=== PATIENT | male | born 1960 | race Caucasian/White ===

== ENCOUNTER 2023-02-15 11:54 | Day surgery (SDC) | payer OTHER ==
[~2023-02-15] VITALS: Ht 182.9 cm; Wt 108.9 kg
[2023-02-15] MEDS ORDERED: LISI5 PO (13:07)
[2023-02-15] MEDS ORDERED: METFORMIN HCL500 M3 PO (13:07)
[2023-02-15] MEDS ORDERED: KLONOPIN0.5 M9 PO (13:07)
--- NOTE | 2023-02-15 14:10 | NUR ---
02/15/23 1410 Eliana Estrada GANGRENE OF RIGHT BIG TOE NOTED DURING STERILE PREP.
[2023-02-15 14:30] VITALS: BP 105/74
== END 2023-02-15 15:30 | disposition home or self-care (01) ==
LOC: ORSCSDS 11:54
PROVIDERS: Podiatrist Foot & Ankle Surgery
PROC: 0Y6P0Z1 Detachment at Right 1st Toe, High, Open Approach (ICD-10-PCS; principal; 2023-02-15 14:00)
DX: M86.171 Other acute osteomyelitis, right ankle and foot (principal); I96 Gangrene, not elsewhere classified; L97.519 Non-pressure chronic ulcer of other part of right foot with unspecified severity; E11.42 Type 2 diabetes mellitus with diabetic polyneuropathy; I10 Essential (primary) hypertension; I77.9 Disorder of arteries and arterioles, unspecified; E66.9 Obesity, unspecified; Z68.32 Body mass index [BMI] 32.0-32.9, adult; Z87.891 Personal history of nicotine dependence; Z79.82 Long term (current) use of aspirin; Z79.84 Long term (current) use of oral hypoglycemic drugs; Z79.899 Other long term (current) drug therapy
CPT/HCPCS: 82947; 88305; 88311; J0690; J2001; J2250; J2704; J2795; J3010; J7120

== ENCOUNTER 2023-05-06 11:24 | Day surgery (SDC) | payer OTHER ==
[~2023-05-06 11:24] MED LIST: KLONOPIN0.5 M9 PO; LISI5 PO; METFORMIN HCL500 M3 PO
== END 2023-05-06 22:42 | disposition home or self-care (01) ==
LOC: WOUND 11:24
DX: I96 Gangrene, not elsewhere classified (principal); I10 Essential (primary) hypertension; E11.40 Type 2 diabetes mellitus with diabetic neuropathy, unspecified; Z87.891 Personal history of nicotine dependence
CPT/HCPCS: G0463

== ENCOUNTER 2023-05-13 03:45 | Day surgery (SDC) | payer OTHER | END 2023-05-13 23:11 | disposition home or self-care (01) | LOC: WOUND 03:45 | DX: E11.621 Type 2 diabetes mellitus with foot ulcer (principal); L97.529 Non-pressure chronic ulcer of other part of left foot with unspecified severity; E11.52 Type 2 diabetes mellitus with diabetic peripheral angiopathy with gangrene; I96 Gangrene, not elsewhere classified; E11.51 Type 2 diabetes mellitus with diabetic peripheral angiopathy without gangrene; E11.40 Type 2 diabetes mellitus with diabetic neuropathy, unspecified; I10 Essential (primary) hypertension | CPT/HCPCS: G0463 ==

== ENCOUNTER 2023-05-22 02:51 | Day surgery (SDC) | payer OTHER | END 2023-05-22 23:04 | disposition home or self-care (01) | LOC: WOUND 02:51 | DX: I96 Gangrene, not elsewhere classified (principal); E11.51 Type 2 diabetes mellitus with diabetic peripheral angiopathy without gangrene; I10 Essential (primary) hypertension; E11.40 Type 2 diabetes mellitus with diabetic neuropathy, unspecified | CPT/HCPCS: G0463 ==

== ENCOUNTER 2023-05-29 02:55 | Day surgery (SDC) | payer OTHER | END 2023-05-29 23:21 | disposition home or self-care (01) | LOC: WOUND 02:55 | DX: I96 Gangrene, not elsewhere classified (principal); E11.40 Type 2 diabetes mellitus with diabetic neuropathy, unspecified; I10 Essential (primary) hypertension | CPT/HCPCS: A9270; G0463 ==

== ENCOUNTER 2023-06-05 01:52 | Day surgery (SDC) | payer OTHER | END 2023-06-05 23:31 | disposition home or self-care (01) | LOC: WOUND 01:52 | DX: I96 Gangrene, not elsewhere classified (principal); E11.40 Type 2 diabetes mellitus with diabetic neuropathy, unspecified; E11.621 Type 2 diabetes mellitus with foot ulcer; E11.51 Type 2 diabetes mellitus with diabetic peripheral angiopathy without gangrene; I10 Essential (primary) hypertension ==

== ENCOUNTER 2023-06-12 00:27 | Day surgery (SDC) | payer OTHER ==
[2023-06-12] MEDS ORDERED: Lidocaine HCl 4% Cream 5 GM ONE (14:54)
[2023-06-18] MEDS ORDERED: Aspir 8181 MG PO (07:21)
[2023-06-18] MEDS ORDERED: AMOCLA875 PO (07:21)
== END 2023-06-12 22:43 | disposition home or self-care (01) ==
LOC: WOUND 00:27
DX: E11.621 Type 2 diabetes mellitus with foot ulcer (principal); I96 Gangrene, not elsewhere classified; E11.52 Type 2 diabetes mellitus with diabetic peripheral angiopathy with gangrene; I10 Essential (primary) hypertension; L97.512 Non-pressure chronic ulcer of other part of right foot with fat layer exposed
CPT/HCPCS: A9270

== ENCOUNTER 2023-06-18 08:50 | Day surgery (SDC) | payer OTHER ==
[~2023-06-18] VITALS: Ht 182.9 cm; Wt 107.5 kg
[2023-06-18] VITALS (12 sets, daily range): BP systolic 132–160; BP diastolic 73–95
[~2023-06-18 08:50] MED LIST changes: +AMOCLA875 PO; +Aspir 8181 MG PO
[2023-06-18] MEDS ORDERED: NS 1,000 ML IV ONE ×2 (10:12→10:30)
[2023-06-18] MEDS ORDERED: Nitroglycerin 2 MG/20 ML BTL ONE (10:12)
[2023-06-18] MEDS ORDERED: NS 250 ML IV ONE (10:12)
[2023-06-18] MEDS ORDERED: Heparin Sodium 1000 Units/ML 10ML MDV ONE ×2 (10:12→10:30)
[2023-06-18] MEDS ORDERED: Midazolam HCl 1MG / ML 2ML Vial ONE ×3 (10:29→11:49)
[2023-06-18] MEDS ORDERED: FentaNYL Citrate 50 MCG/ML 2 ML Injection ONE ×3 (10:29→11:49)
--- NOTE | 2023-06-18 12:53 | NUR ---
PT LAYING IN BED IN [place]. PT DRINKING WATER AND EATING LUNCH. PT DENIES CHEST PAIN. CALL LIGHT IN REACH. LEFT FEMORAL GROIN SITE SOFT NON-TENDER WITH NO HEMATOMA, NO PULSATILE BLEEDING AND INTACT DRESSING. LEFT PT PULSE DOPPLER.
--- NOTE | 2023-06-18 13:27 | NUR ---
LEFT FEM GROIN SITE STILL SOFT NON-TENDER WITH NO HEMATOMA,NO PULSATILE BLEEDING AND INTACT DRESSING. L PT DOPPLER. HOB UP TO 45 DEGREES.
--- NOTE | 2023-06-18 14:09 | NUR ---
NO CHANGES TO L FEM GROIN SITE. L PT DOPPLER.
--- NOTE | 2023-06-18 14:43 | NUR ---
PT AMBULATED TO BR TO VOID. NO CHANGES TO L FEM GROIN SITE. DISCHARGE INSTRUCTIONS REVIEWED ALL QUESTIONS ANSWERED. 22 G IV DISCONTNUED FROM RIGHT HAND WITH INTACT CANNULA. PT ESCORTED OUT VIA WHEELCHAIR ESCORT.
== END 2023-06-18 14:45 | disposition home or self-care (01) ==
LOC: MHTC 08:50 → EDSTATUS 09:00 → MHTC 09:00
DX: E11.51 Type 2 diabetes mellitus with diabetic peripheral angiopathy without gangrene (principal); I10 Essential (primary) hypertension; Z87.891 Personal history of nicotine dependence; I77.9 Disorder of arteries and arterioles, unspecified; Z89.411 Acquired absence of right great toe; Z79.84 Long term (current) use of oral hypoglycemic drugs
CPT/HCPCS: 76937; 85347; 99152; 99153; C1714; C1725; C1753; C1760; C1769; C1887; C1894; C2623; J1644; J2250; J3010; J7030; J7050; Q9967

== ENCOUNTER 2023-06-19 05:35 | Day surgery (SDC) | payer OTHER ==
[2023-06-19] MEDS ORDERED: Lidocaine HCl 4% Cream 5 GM ONE (15:14)
== END 2023-06-19 23:09 | disposition home or self-care (01) ==
LOC: WOUND 05:35
DX: E11.52 Type 2 diabetes mellitus with diabetic peripheral angiopathy with gangrene (principal); E11.621 Type 2 diabetes mellitus with foot ulcer; I10 Essential (primary) hypertension; E11.40 Type 2 diabetes mellitus with diabetic neuropathy, unspecified
CPT/HCPCS: A9270

== ENCOUNTER 2023-06-26 02:53 | Day surgery (SDC) | payer OTHER ==
[2023-06-26] MEDS ORDERED: Lidocaine HCl 4% Cream 5 GM ONE (15:09)
== END 2023-06-26 22:56 | disposition home or self-care (01) ==
LOC: WOUND 02:53
DX: E11.621 Type 2 diabetes mellitus with foot ulcer (principal); L97.518 Non-pressure chronic ulcer of other part of right foot with other specified severity; E11.40 Type 2 diabetes mellitus with diabetic neuropathy, unspecified; E11.51 Type 2 diabetes mellitus with diabetic peripheral angiopathy without gangrene; I96 Gangrene, not elsewhere classified; I10 Essential (primary) hypertension
CPT/HCPCS: A9270

== ENCOUNTER 2023-08-07 02:28 | Day surgery (SDC) | payer OTHER ==
[2023-08-07] MEDS ORDERED: Acetaminophen650 M1 PO (11:03)
[2023-08-07] MEDS ORDERED: DIPH50 PO (11:04)
[2023-08-08] MEDS ORDERED: CLOP75 PO (15:00)
== END 2023-08-07 23:32 | disposition home or self-care (01) ==
LOC: WOUND 02:28
DX: E11.621 Type 2 diabetes mellitus with foot ulcer (principal); L97.512 Non-pressure chronic ulcer of other part of right foot with fat layer exposed; E11.52 Type 2 diabetes mellitus with diabetic peripheral angiopathy with gangrene; I96 Gangrene, not elsewhere classified
CPT/HCPCS: G0463

== ENCOUNTER 2023-08-08 10:26 | Day surgery (SDC) | payer OTHER ==
[2023-08-08] VITALS (7 sets, daily range): BP systolic 110–145; BP diastolic 70–108
[~2023-08-08] VITALS: Ht 182.9 cm; Wt 109.0 kg
[~2023-08-08 10:26] MED LIST changes: +Acetaminophen650 M1 PO; +DIPH50 PO
[2023-08-08] MEDS ORDERED: FentaNYL Citrate 50 MCG/ML 2 ML Injection ONE (13:21)
[2023-08-08] MEDS ORDERED: NS 1,000 ML IV ONE ×2 (13:21→13:26)
[2023-08-08] MEDS ORDERED: Midazolam HCl 1MG / ML 2ML Vial ONE (13:21)
[2023-08-08] MEDS ORDERED: NS 250 ML IV ONE (13:26)
[2023-08-08] MEDS ORDERED: Heparin Sodium 1000 Units/ML 10ML MDV ONE (13:26)
[2023-08-08] MEDS ORDERED: Nitroglycerin 2 MG/20 ML BTL ONE (13:27)
--- NOTE | 2023-08-08 14:57 | NUR ---
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 pt. alert and oriented at this time. right groin site with anioseal in place, no swelling, ozzing or hematoma at this time. pt. vss upon arrival to unit. refreshments provided. pt. denies any discomfort at this time. pulses remain unchanged from previous assessment.
[2023-08-08] MEDS ORDERED: CLOP75 PO (15:00)
--- NOTE | 2023-08-08 15:39 | NUR ---
PT HOB ELEVATED TO 30 DEGREES. R GROIN SITE REMAINS UNCHANGED FROM PREVIOUS ASSESSMENT, WNL, SOFT NON TENDER, NO OOZING OR HEMATOMA.
--- NOTE | 2023-08-08 16:30 | NUR ---
PT UP TO GET DRESSED SITE REMAINS WNL, NO CHANGES FROM PREVIOUS ASSESSMENT. DISCHARGEINSTRUCTIONS REVIEWED IN DETAIL. PRESCRIPTION FOR PLAVIX FAXED TO [facility] PER PT REQUEST. PT. VERBALIZED DISCHARGE INSTRUCTIONS. NO FURTHER QUESTIONS. IV REMOVED CATHETER INTACT. PT. VSS UPON DISCHARGE. UMPQUA RIDES TO TAKE PT HOME..
== END 2023-08-08 17:00 | disposition home or self-care (01) ==
LOC: MHTC 10:26
DX: I70.223 Atherosclerosis of native arteries of extremities with rest pain, bilateral legs (principal); Z89.411 Acquired absence of right great toe; I10 Essential (primary) hypertension; E78.5 Hyperlipidemia, unspecified; Z79.82 Long term (current) use of aspirin; Z79.84 Long term (current) use of oral hypoglycemic drugs; Z79.899 Other long term (current) drug therapy
CPT/HCPCS: 37227; 75716; 75774; 76937; 99152; 99153; C1714; C1760; C1769; C1874; C1887; C1894; C2623; J1644; J2250; J3010; J7030; J7050; Q9967

== ENCOUNTER 2023-09-24 10:51 | Day surgery (SDC) | payer OTHER ==
[2023-09-24] VITALS (12 sets, daily range): BP systolic 109–159; BP diastolic 69–100
[~2023-09-24] VITALS: Ht 182.9 cm; Wt 109.3 kg
[~2023-09-24 10:51] MED LIST changes: +CLOP75 PO
[2023-09-24] MEDS ORDERED: Heparin Sodium 1000 Units/ML 10ML MDV ONE ×2 (12:57→14:56)
[2023-09-24] MEDS ORDERED: NS 100 ML IV ONE (12:57)
[2023-09-24] MEDS ORDERED: NS 1,000 ML IV ONE ×2 (12:58→13:20)
[2023-09-24] MEDS ORDERED: NS 250 ML IV ONE (12:58)
[2023-09-24] MEDS ORDERED: Midazolam HCl 1MG / ML 2ML Vial ONE ×3 (13:20→14:12)
[2023-09-24] MEDS ORDERED: FentaNYL Citrate 50 MCG/ML 2 ML Injection ONE ×3 (13:20→14:12)
[2023-09-24] MEDS ORDERED: Verapamil HCL 2.5 MG/ML 2ML Injection ONE (14:09)
[2023-09-24] MEDS ORDERED: Nitroglycerin 2 MG/20 ML BTL ONE (14:16)
--- NOTE | 2023-09-24 15:45 | NUR ---
ASSUMED CARE OF PT POST PROCEDURE. PT AWAKE, ORIENTED AND COOPERATIVE; DENIES PAIN POST PROCEDURE. MONITOR SB/SB 56-60'S, B/P 118/69, SPO2 94% RA. L GROIN NO SWELLING/HEMATOMA, TEGADER, DRSG INTACT; LLE PULSES DOPPLER X 2. R PT SITE NO SWELLING/HEMATOMA, MARNIE AND TEGADERM DRSG INTACT.
--- NOTE | 2023-09-24 17:00 | NUR ---
PT'S HOB ELEVATED, SITE UNCHANGED. PT EATING WITHOUT ISSUE.
--- NOTE | 2023-09-24 18:10 | NUR ---
PT AMB TO BATHROOM, GAIT STEADY, SITES UNCHANGED WITH ACTIVITY. PT DRESSED SELF WITHOUT ISSUE, SITES UNCHANGED; IV REMOVED-CANNULA INTACT.
--- NOTE | 2023-09-24 18:23 | NUR ---
PT RECEIVED DISCHARGE INSTRUCTIONS, MED LIST AND AFTER CARE INSTRUCTIONS; VERBALIZED GOOD UNDERSTANDING. PT LEFT FACILITY VIA W/C, CONDITION STABLE.
== END 2023-09-24 23:45 | disposition home or self-care (01) ==
LOC: MHTC 10:51
DX: E11.52 Type 2 diabetes mellitus with diabetic peripheral angiopathy with gangrene (principal); I96 Gangrene, not elsewhere classified; I10 Essential (primary) hypertension; Z87.891 Personal history of nicotine dependence; Z79.899 Other long term (current) drug therapy; Z79.82 Long term (current) use of aspirin; Z79.84 Long term (current) use of oral hypoglycemic drugs
CPT/HCPCS: 37225; 37228; 75625; 75716; 75774; 76937; 99152; 99153; C1714; C1725; C1760; C1769; C1887; C1894; C2623; J1644; J2250; J3010; J7030; J7050; Q9967

== ENCOUNTER → 2023-12-23 | Outpatient (CLI) | payer OTHER ==
[2023-12-23 11:56] LABS: Alanine Aminotransfer (ALT/SGP 27 U/L (12-78); Alk Phos 65 U/L (50-136); Anion Gap 9 mmol/L (3-11); Aspartate Aminotrans (AST/SGOT 12 U/L (12-37); Bilirubin, Total 1.1 mg/dL (0.1-1.0); Blood Urea Nitrogen 21 mg/dL (8-24); CHOL/HDL RATIO 3.8; CO2, Blood 24 mmol/L (21-32); Calcium, Blood 8.8 mg/dL (8.5-10.1); Chloride, Blood 107 mmol/L (98-108); Cholesterol 125 mg/dL (50-200); Creatinine, Blood 0.91 mg/dL (0.60-1.20); Globulin, Blood 4.2 g/dL (2.2-4.0); Glomerular Filtration Rate 94 (60-); Glucose, Blood 167 mg/dL (70-99); HDL Cholesterol 33 mg/dL (>39); LDL/HDL RATIO 1.6; Low Density Lipoprotein Chol 52 mg/dL (0-110); PSA, %Free 21.5 %; Potassium, Blood 4.1 mmol/L (3.5-5.5); Sodium, Blood 136 mmol/L (136-145); Total Protein, Blood 8.2 g/dL (6.4-8.2); Triglycerides 198 mg/dL (30-160); Very Low Density Lipoprot Chol 39 mg/dL (6-32)
[2023-12-23 11:58] LABS: BASOPHILS ABSOLUTE AUTO 0.02 K/mm3 (0.00-0.23); BASOPHILS PERCENT AUTO 0 % (0-2); EOSINOPHILS ABSOLUTE AUTO 0.07 K/mm3 (0.00-0.68); EOSINOPHILS PERCENT AUTO 1 % (0-6); Hematocrit 45.6 % (37.0-53.0); Hemoglobin 14.8 g/dL (13.5-17.5); IMMATURE GRAN ABSOLUTE AUTO 0.03 K/mm3 (0.00-0.10); IMMATURE GRAN PERCENT AUTO 0 % (0-1); LYMPHOCYTES ABSOLUTE AUTO 2.62 K/mm3 (0.84-5.20); LYMPHOCYTES PERCENT AUTO 25 % (21-46); MONOCYTES ABSOLUTE AUTO 0.68 K/mm3 (0.16-1.47); MONOCYTES PERCENT AUTO 7 % (4-13); Mean Corpuscular HGB 26.8 pg (26.0-34.0); Mean Corpuscular HGB Conc 32.5 g/dL (31.5-36.5); Mean Corpuscular Volume 83 fL (80-100); Mean Platelet Volume 11.4 fL (9.1-12.4); NEUTROPHILS ABSOLUTE AUTO 6.92 K/mm3 (1.96-9.15); NEUTROPHILS PERCENT AUTO 67 % (41-73); Platelet Count 258 K/mm3 (150-400); RDW Coefficient Variation 14.8 % (11.7-14.2); RDW Standard Deviation 44.6 fL (35.1-46.3); Red Blood Cell Count 5.53 M/mm3 (4.30-5.90); White Blood Cell Count 10.34 K/mm3 (4.00-11.30)
[2023-12-23 12:46] LABS: Creatinine, Urine Random 71.4 mg/dL (27.00-270.00); Microalb/Creat Ratio UR, Rand 63.726 mg/g (0.000-30.000); Microalbumin, Random Urine 45.5 mg/L (0.000-20.000)
== END ==
LOC: LAB SHORT 10:36 → LAB 10:36
PROVIDERS: Family Medicine
DX: Z00.01 Encounter for general adult medical examination with abnormal findings (principal); R97.20 Elevated prostate specific antigen [PSA]; E11.52 Type 2 diabetes mellitus with diabetic peripheral angiopathy with gangrene
CPT/HCPCS: 80053; 80061; 82043; 82570; 84153; 84154; 85025

== ENCOUNTER → 2025-02-05 | Outpatient (CLI) | payer MEDICARE, OTHER ==
[2025-02-05 15:29] LABS: BASOPHILS ABSOLUTE AUTO 0.03 K/mm3 (0.00-0.23); BASOPHILS PERCENT AUTO 0 % (0-2); EOSINOPHILS ABSOLUTE AUTO 0.07 K/mm3 (0.00-0.68); EOSINOPHILS PERCENT AUTO 1 % (0-6); Hematocrit 48.6 % (37.0-53.0); Hemoglobin 15.8 g/dL (13.5-17.5); IMMATURE GRAN ABSOLUTE AUTO 0.02 K/mm3 (0.00-0.10); IMMATURE GRAN PERCENT AUTO 0 % (0-1); LYMPHOCYTES ABSOLUTE AUTO 3.13 K/mm3 (0.84-5.20); LYMPHOCYTES PERCENT AUTO 34 % (21-46); MONOCYTES ABSOLUTE AUTO 0.40 K/mm3 (0.16-1.47); MONOCYTES PERCENT AUTO 4 % (4-13); Mean Corpuscular HGB Conc 32.5 g/dL (31.5-36.5); Mean Corpuscular Volume 82 fL (80-100); NEUTROPHILS ABSOLUTE AUTO 5.69 K/mm3 (1.96-9.15); NEUTROPHILS PERCENT AUTO 61 % (41-73); NRBC ABSOLUTE 0.00 K/mm3 (0.00-0.02); NRBC Auto 0.0 /100 WBC (0.0-0.2); Platelet Count 232 K/mm3 (150-400); RDW Coefficient Variation 15.3 % (11.7-14.2); RDW Standard Deviation 45.2 fL (35.1-46.3)
[2025-02-05 15:43] LABS: Alanine Aminotransfer (ALT/SGP 29 U/L (12-78); Albumin, Blood 4.5 g/dL (3.4-5.0); Albumin/Globulin Ratio 1.3 (0.8-1.8); Anion Gap 10 mmol/L (3-11); Aspartate Aminotrans (AST/SGOT 15 U/L (12-37); Bilirubin, Total 1.1 mg/dL (0.1-1.0); Blood Urea Nitrogen 11 mg/dL (8-24); CHOL/HDL RATIO 3.1; CO2, Blood 28 mmol/L (21-32); Calcium, Blood 9.0 mg/dL (8.5-10.1); Chloride, Blood 105 mmol/L (98-108); Cholesterol 139 mg/dL (50-200); Creatinine, Blood 0.83 mg/dL (0.60-1.20); Globulin, Blood 3.4 g/dL (2.2-4.0); Glucose, Blood 170 mg/dL (70-99); HDL Cholesterol 45 mg/dL (>39); LDL/HDL RATIO 1.2; Low Density Lipoprotein Chol 52 mg/dL (0-110); PSA, %Free 21.9 %; PSA, Free 1.370 ng/mL; Potassium, Blood 3.8 mmol/L (3.5-5.5); Prostate Specific Antigen 6.250 ng/mL (0.000-4.000); Sodium, Blood 139 mmol/L (136-145); Total Protein, Blood 7.9 g/dL (6.4-8.2); Triglycerides 211 mg/dL (30-160); Very Low Density Lipoprot Chol 42 mg/dL (6-32)
== END ==
LOC: LAB 15:05 → LAB SHORT 15:05
PROVIDERS: Family Medicine
DX: E78.2 Mixed hyperlipidemia (principal); I12.9 Hypertensive chronic kidney disease with stage 1 through stage 4 chronic kidney disease, or unspecified chronic kidney disease; N18.2 Chronic kidney disease, stage 2 (mild); R97.20 Elevated prostate specific antigen [PSA]
CPT/HCPCS: 80053; 80061; 84153; 84154; 85025